=== PATIENT | female | born 1950 | race Two or more races ===

== ENCOUNTER 2021-02-18 08:37 | Day surgery (SDC) | payer OTHER ==
[~2021-02-18 08:37] MED LIST: CENTRUM ADULTS1 EACH PO; EVISTA60 MG PO; NP THYROID60 MG PO; VITAMIN K100 MCG PO; [UNRECOGNIZED DRUG - OTHER] PO
[2021-02-18] MEDS ORDERED: MACROBID 100 M100 MG PO (14:32)
[2021-02-18] MEDS ORDERED: ULTRACET PO (14:32)
== END 2021-02-18 18:20 | disposition home or self-care (01) ==
LOC: CIR.AMB 08:37
PROVIDERS: ATTEND Obstetrics & Gynecology Gynecology
DX: N81.11 Cystocele, midline (principal); Z20.822 Contact with and (suspected) exposure to COVID-19